=== PATIENT | female | born 1980 | race Caucasian/White ===

== ENCOUNTER 2022-08-09 08:52 | Day surgery (SDC) | payer BC ==
[~2022-08-09 08:52] MED LIST: Albuterol 0.083% 2.5 MG/3 ML Neb Soln NEB PRN; Famotidine 20 MG/2 ML SDV ONE; HYDROmorphone 1 MG/ML Syringe IVPUSH PRN; Metoclopramide 10 MG/2 ML SDV IVPUSH PRN; Morphine 2 MG/ML SYRINGE IVPUSH PRN; Naloxone 0.4 MG/ML SDV IVPUSH PRN; Ondansetron 4 MG/2 ML SDV IVPUSH PRN; Propofol 200 MG/20 ML SDV ONE; droPERidol 5 MG/2 ML SDV IVPUSH PRN; fentaNYL 100 MCG/2 ML SDV ONE; fentaNYL 50 MCG/ML SDV IVPUSH PRN; propofoL 50 ML ONE
[2022-08-09] MEDS ORDERED: Scopolamine 1.5 MG Transdermal Patch TOP ONE (09:00)
[2022-08-09] MEDS ORDERED: Lactated Ringers 1,000 ML IV SCH (09:45)
[2022-08-09] MEDS ORDERED: Glycopyrrolate 0.2 MG/ML SDV ONE ×2 (10:00→11:29)
[2022-08-09] MEDS ORDERED: Ketorolac 30 MG/ML SDV IM ONE (11:54)
[2022-08-09 13:00] VITALS: BP 133/50; PULSE 60
== END 2022-08-09 12:38 | disposition home or self-care (01) ==
LOC: MW.SDS 08:52
PROVIDERS: ATTEND Obstetrics & Gynecology
DX: N85.8 Other specified noninflammatory disorders of uterus (principal); F41.9 Anxiety disorder, unspecified; G43.909 Migraine, unspecified, not intractable, without status migrainosus; Z79.899 Other long term (current) drug therapy
CPT/HCPCS: 58563; A9270; J1885; J2704; J3010; J3490; J7120; 00952

== ENCOUNTER 2024-04-02 10:57 | Emergency (ER) | payer BC ==
[2024-04-02 12:04] LABS: BASOPHILS ABSOLUTE AUTO 0.03 K/uL (0.00-0.20); BASOPHILS PERCENT AUTO 0.5 % (0.0-1.0); EOSINOPHILS ABSOLUTE AUTO 0.06 K/uL (0.00-0.45); EOSINOPHILS PERCENT AUTO 1.1 % (0.0-6.0); HEMATOCRIT 39.3 % (37.0-47.0); HEMOGLOBIN 13.5 g/dL (12.0-16.0); IMMATURE GRAN ABSOLUTE AUTO 0.01 K/uL (0.00-0.05); IMMATURE GRAN PERCENT AUTO 0.2 % (0.0-0.4); LYMPHOCYTES ABSOLUTE AUTO 2.16 K/uL (1.00-4.80); LYMPHOCYTES PERCENT AUTO 39.3 % (24.0-44.0); MEAN CORPUSCULAR HEMOGLOBIN 29.9 pg (28.0-32.0); MEAN CORPUSCULAR HGB CONC 34.4 g/dL (32.0-36.0); MEAN CORPUSCULAR VOLUME 87.1 fL (83.0-99.0); MEAN PLATELET VOLUME 11.5 fL (9.4-12.3); MONOCYTES ABSOLUTE AUTO 0.46 K/uL (0.00-0.80); MONOCYTES PERCENT AUTO 8.4 % (0.0-8.0); NEUTROPHILS ABSOLUTE AUTO 2.78 K/uL (1.80-7.70); NEUTROPHILS PERCENT AUTO 50.5 % (41.0-71.0); PLATELET COUNT,PLT 159 K/uL (150-400); RED BLOOD CELL COUNT 4.51 M/uL (4.10-5.30)
[2024-04-02] MEDS: diphenhydrAMINE 50 MG/ML SDV IVPUSH ONE (12:20)
[2024-04-02] MEDS: Prochlorperazine 10 MG/2 ML SDV IVPUSH ONE (12:20)
[2024-04-02] MEDS: Sodium Chloride 0.9% 1,000 ML IV ONE (12:20)
[2024-04-02] MEDS: Ketorolac 30 MG/ML SDV IVPUSH ONE (12:20)
[2024-04-02 12:22] LABS: INR 1.04 (0.86-1.11); PTT,PARTIAL THROMBOPLSTIN TIME 32.1 SEC (23.9-30.7)
[2024-04-02 12:48] LABS: A/G RATIO 1.1 (0.9-1.6); ALANINE AMINOTRANSFERASE,ALT 27 IU/L (14-63); ALBUMIN 3.9 g/dL (3.4-5.0); ALKALINE PHOSPHATASE 54 U/L (46-116); ASPARTATE AMNIOTRANSFERASE,AST 15 IU/L (15-37); BILIRUBIN TOTAL 0.4 mg/dL (0.2-1.0); BLOOD UREA NITROGEN,BUN 11 mg/dL (7.0-18.0); CALCIUM 8.9 mg/dL (8.5-10.1); CARBON DIOXIDE,CO2 25.8 mmol/L (21.0-32.0); CHLORIDE,CL 102 mmol/L (98-107); CREATININE 0.9 mg/dL (0.6-1.0); EST CRCL DRUG DOSING (CG) 67.36 mL/min; GLUCOSE RANDOM 89 mg/dL (74-106); MAGNESIUM 1.9 mg/dL (1.8-2.4); POTASSIUM,K 3.6 mmol/L (3.5-5.1); PROTEIN TOTAL,TP 7.6 g/dL (6.4-8.2); SODIUM,NA 137 mmol/L (136-145); TSH ULTRASENSITIVE 3.99 uIU/mL (0.36-3.74)
[2024-04-02 12:49] LABS: ESTIMATED GFR 82 mL/min (>60)
[2024-04-02 13:05] LABS: T4 FREE 0.96 ng/dL (0.76-1.46)
[2024-04-02 13:32] LABS: BILIRUBIN,URINE NEGATIVE (NEGATIVE); COLOR,URINE YELLOW; GLUCOSE,URINE NEGATIVE (NEGATIVE); KETONES,URINE NEGATIVE (NEGATIVE); LEUKOCYTE ESTERASE,URINE NEGATIVE (NEGATIVE); NITRITE,URINE NEGATIVE (NEGATIVE); OCCULT BLOOD,URINE TRACE-INTACT (NEGATIVE); PH,URINE 5.5 (5.0-8.0); PROTEIN,URINE NEGATIVE (NEGATIVE); UROBILINOGEN,URINE 0.2 EU/dL (<2.0)
[2024-04-02 13:50] LABS: APPEARANCE,URINE HAZY
[2024-04-02 13:51] LABS: BACTERIA,URINE FEW (NEGATIVE); EPITHELIAL CELLS,URINE FEW (NONE-FEW); RBC,URINE 0-2 (0-2/HPF); WBC,URINE 0-3 (0-5/HPF)
[2024-04-02 14:14] VITALS: BP 99/67; PULSE 63
== END 2024-04-02 14:13 | disposition home or self-care (01) ==
LOC: MW.ED 10:57
DX: G43.909 Migraine, unspecified, not intractable, without status migrainosus (principal); E03.8 Other specified hypothyroidism; Z75.8 Other problems related to medical facilities and other health care; Z79.899 Other long term (current) drug therapy
CPT/HCPCS: 36415; 70450; 80053; 81001; 83735; 84439; 84443; 84484; 85025; 85610; 85730; 93005; 96361; 96374; 96375; 99285; J0780; J1200; J1885; J7030